=== PATIENT | female | born 1980 | race Caucasian/White ===

== ENCOUNTER 2016-11-12 14:51 | Outpatient (CLI) | payer OTHER | END 2016-11-12 23:00 | LOC: LAB SRH 14:51 | DX: Z11.1 Encounter for screening for respiratory tuberculosis (principal) | CPT/HCPCS: 90074; 91832 ==

== ENCOUNTER 2016-11-19 16:01 | Outpatient (CLI) | payer OTHER ==
--- NOTE | 2016-11-19 17:00 | DIAGNOSTIC IMAGING REPORT ---
PROCEDURE: XR HIP BILATERAL INDICATION: DBILAT HIP PAIN TECHNIQUE: AP view of the pelvis and hips with lateral views of the bilateral hips. COMPARISON: None. FINDINGS: RIGHT HIP: Osseous structures and joint spaces are normal. LEFT HIP: Osseous structures and joint spaces are normal. PELVIS: Osseous pelvis is normal. IMPRESSION: 1. Negative pelvis and bilateral hips.
== END 2016-11-19 23:00 ==
LOC: XR SRH 16:01
DX: M25.551 Pain in right hip (principal); M25.552 Pain in left hip